=== PATIENT | female | born 1940 | race African-American/Black ===

== ENCOUNTER 2024-07-19 15:19 | Inpatient (IN) | payer MEDICARE, MEDICAID ==
[~2024-07-19] VITALS: Ht 157.5 cm; Wt 89.8 kg
[~2024-07-19 15:19] MED LIST: ALBUTEROL; ALPHAGAN; AMIT10TA6 PO; CARV6.2548 PO; CLON1TAB12 PO; ERGO1250 PO; FAMO40TA7 PO; rosuvastatin
[2024-07-19 17:33] LABS: BASOPHILS % 0.6 % (0.0-2.0); DIFFERENTIAL COMMENT 0; EOSINOPHILS % 2.1 % (0.0-5.0); HEMOGLOBIN. 12.6 g/dL (12.0-16.0); LYMPHOCYTES % 30.2 % (20.0-50.0); MEAN CORPUSCULAR HEMOGLOBIN 23.3 pg (28.0-32.0); MEAN CORPUSCULAR HGB CONC 30.7 g/dL (31.0-37.0); MEAN PLATELET VOLUME 9.6 fl (7.4-10.4); MONOCYTES % 14.9 % (2.0-8.0); NEUTROPHILS % 52.2 % (40.0-76.0); PLATELET 211 x1000/uL (130-400); RED CELL DISTRIBUTION WIDTH 18.4 % (11.6-14.6); WHITE BLOOD COUNT 6.1 x1000/uL (4.5-11.0)
[2024-07-19 17:38] LABS: CHLORIDE 109 mEq/L (98-107); POTASSIUM 3.7 mEq/L (3.5-5.1); SODIUM 142 mEq/L (136-145)
[2024-07-19 17:39] LABS: CALCIUM 9.5 mg/dL (8.7-10.4); CARBON DIOXIDE 28 mEq/L (21-32)
[2024-07-19 17:44] LABS: CREATININE 0.8 mg/dL (0.6-1.0); GLUCOSE 84 mg/dL (70-105); UREA NITROGEN BLOOD 10 mg/dL (9-23)
[2024-07-19 17:46] LABS: ALANINE AMINOTRANSFERASE 8 IU/L (10-49); ASPARTATE AMINOTRANSFERASE 14 IU/L (<34); BILIRUBIN TOTAL 0.3 mg/dL (0.1-1.0); PROTEIN TOTAL 7.4 g/dL (6.0-8.3)
[2024-07-19 17:47] LABS: PROTHROMBIN TIME 11.2 sec (9.6-11.0)
[2024-07-19 17:50] LABS: BILIRUBIN DIRECT < 0.1 mg/dL (<=3.0); TROPONIN I HIGH SENSITIVITY < 4 ng/L (3.0-34)
[2024-07-19] MEDS ORDERED: ONDANSETRON HCL 4MG/2ML INJ IV PRN (19:30)
[2024-07-19] MEDS ORDERED: NALOXONE HCL 0.4MG/ML VIAL IV PRN (19:30)
[2024-07-19] MEDS ORDERED: HYDROCODONE/ACETAMINOPHEN 5/325MG TABLET PO PRN (19:30)
[2024-07-19] MEDS ORDERED: CLONIDINE 0.1MG TABLET PO PRN (19:30)
[2024-07-19] MEDS: ENOXAPARIN 40MG/0.4ML SYR SUBCUT SCH (20:53)
[2024-07-19 20:57] LABS: CLARITY URINE CLOUDY (CLEAR); COLOR URINE YELLOW (YELLOW); GLUCOSE URINE 3+ (NEGATIVE); KETONES URINE NEGATIVE (NEGATIVE); LEUKOCYTE ESTERASE URINE 2+ (NEGATIVE); NITRITE URINE NEGATIVE (NEGATIVE); OCCULT BLOOD URINE TRACE (NEGATIVE); PH URINE 6.5 (4.5-8.0); PROTEIN URINE NEGATIVE (NEGATIVE); SPECIFIC GRAVITY URINE 1.028 (1.005-1.030); UROBILINOGEN URINE 0.2 E.U./dL (0.2-1.0)
[2024-07-19] MEDS: LEVETIRACETAM 500MG TABLET PO SCH (21:27)
[2024-07-19] MEDS: CARVEDILOL 6.25 MG TABLET PO SCH (21:27)
[2024-07-19 21:32] LABS: *AMPHETAMINES SCREEN URINE NEGATIVE (NEGATIVE); *BARBITURATES SCREEN URINE PRESUMPTIVE POSITIVE (NEGATIVE); *BENZODIAZEPINES SCREEN URINE NEGATIVE (NEGATIVE); *COCAINE SCREEN URINE NEGATIVE (NEGATIVE)
[2024-07-19 21:33] LABS: CANNABINOID URINE SCREEN NEGATIVE (NEGATIVE); ECSTASY MDMA SCREEN URINE NEGATIVE (NEGATIVE); METHADONE URINE SCREEN NEGATIVE (NEGATIVE); OPIATES URINE SCREEN NEGATIVE (NEGATIVE); PHENCYCLIDINE URINE SCREEN NEGATIVE (NEGATIVE)
[2024-07-19 22:06] LABS: BACTERIA URINE 4+; RBC URINE 0-2 /hpf (0-2); SQUAMOUS EPITHELIAL CELL URINE 1+ /lpf (RARE/1+)
[2024-07-19 22:07] LABS: WBC URINE 25-50 /hpf (0-2)
[2024-07-20 00:10] VITALS: BP 153/64; PULSE 80; RESP 18; TEMP 36.7516
[2024-07-20] MEDS ORDERED: DEXTROSE 50% WATER 50ML SYRINGE IV PRN (02:15)
[2024-07-20 04:00] VITALS: BP 154/91; PULSE 86; RESP 19; TEMP 36.16956; O2SAT 96
[2024-07-20] MEDS: BLOOD SUGAR DIAGNOSTIC STRIP TEST SCH (06:20)
[2024-07-20] MEDS: INSULIN LISPRO 100 UNITS/ML SUBCUT SCH (06:21)
[2024-07-20 07:11] LABS: CHLORIDE 106 mEq/L (98-107); POTASSIUM 3.6 mEq/L (3.5-5.1); SODIUM 142 mEq/L (136-145)
[2024-07-20 07:12] LABS: CALCIUM 9.6 mg/dL (8.7-10.4); CARBON DIOXIDE 26 mEq/L (21-32)
[2024-07-20 07:15] LABS: TROPONIN I HIGH SENSITIVITY 5 ng/L (3.0-34)
[2024-07-20 07:17] LABS: CREATININE 0.6 mg/dL (0.6-1.0); GLUCOSE 110 mg/dL (70-105); TRIGLYCERIDE 125 mg/dL (0-150); UREA NITROGEN BLOOD 12 mg/dL (9-23)
[2024-07-20 07:18] LABS: LDL CHOLESTEROL 62 mg/dL (5-100)
[2024-07-20 07:19] LABS: CHOLESTEROL 152 mg/dL (<200); HDL CHOLESTEROL 64 mg/dL (>65); THYROID STIMULATING HORMONE 2.85 uIU/mL (0.55-4.78)
[2024-07-20 07:20] LABS: BASOPHILS % 0.4 % (0.0-2.0); DIFFERENTIAL COMMENT 0; EOSINOPHILS % 2.2 % (0.0-5.0); HEMATOCRIT. 42.3 % (36.0-48.0); HEMOGLOBIN. 13.2 g/dL (12.0-16.0); LYMPHOCYTES % 33.6 % (20.0-50.0); MEAN CORPUSCULAR HEMOGLOBIN 23.7 pg (28.0-32.0); MEAN CORPUSCULAR HGB CONC 31.1 g/dL (31.0-37.0); MEAN CORPUSCULAR VOLUME 76.1 fL (81.0-99.0); MEAN PLATELET VOLUME 9.9 fl (7.4-10.4); NEUTROPHILS % 50.8 % (40.0-76.0); PLATELET 196 x1000/uL (130-400); RED BLOOD CELL COUNT 5.55 mill/uL (4.2-5.4); RED CELL DISTRIBUTION WIDTH 18.6 % (11.6-14.6); WHITE BLOOD COUNT 5.6 x1000/uL (4.5-11.0)
[2024-07-20 08:00] VITALS: BP 118/57; PULSE 65; RESP 19; TEMP 36.28068; O2SAT 93
[2024-07-20] MEDS: AMLODIPINE 5MG TABLET PO SCH (09:16)
[2024-07-20 12:00] VITALS: BP 118/52; PULSE 65; RESP 19; TEMP 36.28068; O2SAT 98
[2024-07-20] MEDS: ATORVASTATIN CALCIUM 10MG TABLET PO SCH (13:36)
[2024-07-20 16:00] VITALS: BP 128/74; PULSE 76; RESP 16; TEMP 36.114; O2SAT 94
[2024-07-20 20:00] VITALS: BP 137/68; PULSE 56; RESP 20; TEMP 36.16956; O2SAT 94
[2024-07-20] MEDS: ENOXAPARIN 30MG/0.3ML SYR SUBCUT SCH (21:56)
[2024-07-21] VITALS: BP 131/75; PULSE 80; RESP 20; TEMP 35.5584; O2SAT 100
[2024-07-21 04:00] VITALS: BP 152/83; PULSE 64; RESP 20; TEMP 36.16956; O2SAT 96
[2024-07-21 06:32] LABS: CHLORIDE 106 mEq/L (98-107); SODIUM 139 mEq/L (136-145)
[2024-07-21 06:33] LABS: CARBON DIOXIDE 27 mEq/L (21-32)
[2024-07-21 06:34] LABS: CALCIUM 9.7 mg/dL (8.7-10.4)
[2024-07-21 06:38] LABS: BASOPHILS % 0.5 % (0.0-2.0); CREATININE 0.7 mg/dL (0.6-1.0); DIFFERENTIAL COMMENT 0; EOSINOPHILS % 2.4 % (0.0-5.0); GLUCOSE 123 mg/dL (70-105); HEMATOCRIT. 45.9 % (36.0-48.0); HEMOGLOBIN. 14.1 g/dL (12.0-16.0); LYMPHOCYTES % 32.6 % (20.0-50.0); MEAN CORPUSCULAR HEMOGLOBIN 23.6 pg (28.0-32.0); MEAN CORPUSCULAR HGB CONC 30.7 g/dL (31.0-37.0); MEAN CORPUSCULAR VOLUME 76.8 fL (81.0-99.0); MEAN PLATELET VOLUME 9.6 fl (7.4-10.4); MONOCYTES % 13.6 % (2.0-8.0); NEUTROPHILS % 50.9 % (40.0-76.0); PLATELET 208 x1000/uL (130-400); RED BLOOD CELL COUNT 5.97 mill/uL (4.2-5.4); RED CELL DISTRIBUTION WIDTH 18.5 % (11.6-14.6); WHITE BLOOD COUNT 5.7 x1000/uL (4.5-11.0)
[2024-07-21 06:39] LABS: UREA NITROGEN BLOOD 8 mg/dL (9-23)
[2024-07-21 08:00] VITALS: BP 151/96; PULSE 86; RESP 18; TEMP 36.114; O2SAT 98
[2024-07-21] MEDS: LORAZEPAM 2MG/ML INJ IV PRN (09:29)
[2024-07-21 12:00] VITALS: BP 128/79; PULSE 84; RESP 18; TEMP 36.00288; O2SAT 96
[2024-07-21] MEDS: CEFTRIAXONE 1GM/50ML 50 ML IV SCH (13:07)
[2024-07-21 16:00] VITALS: BP 113/75; PULSE 87; RESP 18; TEMP 36.05844; O2SAT 95
[2024-07-21 18:16] LABS: POTASSIUM 3.6 mEq/L (3.5-5.1)
[2024-07-21 20:00] VITALS: BP 121/85; PULSE 98; RESP 20; TEMP 36.16956; O2SAT 96
[2024-07-22] VITALS: BP 105/66; PULSE 75; RESP 20; TEMP 35.89176; O2SAT 96
[2024-07-22 04:00] VITALS: BP 131/75; PULSE 98; RESP 20; TEMP 35.94732; O2SAT 96
[2024-07-22 08:00] VITALS: BP_SYST 119; BP_DIAS 82; BP_DIAS 87; PULSE 86; PULSE 87; RESP 18; TEMP 36.3918; O2SAT 96
[2024-07-22] MEDS: LEVETIRACETAM 250MG TABLET PO SCH (09:12)
[2024-07-22] MEDS: ACETAMINOPHEN 325MG TABLET PO PRN (10:02)
[2024-07-22 11:57] LABS: BASOPHILS % 0.5 % (0.0-2.0); DIFFERENTIAL COMMENT 0; EOSINOPHILS % 2.2 % (0.0-5.0); HEMATOCRIT. 44.3 % (36.0-48.0); HEMOGLOBIN. 13.6 g/dL (12.0-16.0); LYMPHOCYTES % 34.3 % (20.0-50.0); MEAN CORPUSCULAR HEMOGLOBIN 23.4 pg (28.0-32.0); MEAN CORPUSCULAR HGB CONC 30.7 g/dL (31.0-37.0); MEAN CORPUSCULAR VOLUME 76.3 fL (81.0-99.0); MEAN PLATELET VOLUME 9.8 fl (7.4-10.4); MONOCYTES % 10.9 % (2.0-8.0); NEUTROPHILS % 52.1 % (40.0-76.0); PLATELET 187 x1000/uL (130-400); RED CELL DISTRIBUTION WIDTH 18.4 % (11.6-14.6); WHITE BLOOD COUNT 5.3 x1000/uL (4.5-11.0)
[2024-07-22 12:00] VITALS: BP 134/99; PULSE 76; RESP 18; TEMP 36.3918; TEMP 36.39180; O2SAT 96
[2024-07-22 12:29] VITALS: BP 134/99; PULSE 76; TEMP 97.5; O2SAT 96
[2024-07-22 12:55] LABS: CARBON DIOXIDE 21 mEq/L (21-32); CHLORIDE 108 mEq/L (98-107); POTASSIUM 4.4 mEq/L (3.5-5.1); SODIUM 140 mEq/L (136-145)
[2024-07-22 12:56] LABS: CALCIUM 9.7 mg/dL (8.7-10.4)
[2024-07-22 13:01] LABS: CREATININE 0.7 mg/dL (0.6-1.0); GLUCOSE 169 mg/dL (70-105); UREA NITROGEN BLOOD 13 mg/dL (9-23)
== END 2024-07-22 14:20 | disposition home health service (06) | DRG 101 ==
LOC: ER 15:19 → EDBEDREQ 16:23 → 7EST 18:42 → EDBEDREQTM 18:47 → EDBEDREQ 18:47
PROVIDERS: ADMIT Internal Medicine Nephrology; ATTEND Internal Medicine Nephrology
PROC: 4A00X4Z Measurement of Central Nervous Electrical Activity, External Approach (ICD-10-PCS; principal; 2024-07-21)
DX: G40.909 Epilepsy, unspecified, not intractable, without status epilepticus (principal); F03.93 Unspecified dementia, unspecified severity, with mood disturbance; N39.0 Urinary tract infection, site not specified; E87.5 Hyperkalemia; I10 Essential (primary) hypertension; Z88.8 Allergy status to other drugs, medicaments and biological substances; E11.9 Type 2 diabetes mellitus without complications; E03.9 Hypothyroidism, unspecified; E78.5 Hyperlipidemia, unspecified; Z79.1 Long term (current) use of non-steroidal anti-inflammatories (NSAID); Z79.82 Long term (current) use of aspirin; Z79.899 Other long term (current) drug therapy; Z85.118 Personal history of other malignant neoplasm of bronchus and lung; Z86.73 Personal history of transient ischemic attack (TIA), and cerebral infarction without residual deficits; Z87.891 Personal history of nicotine dependence; Z91.041 Radiographic dye allergy status; Z92.3 Personal history of irradiation
CPT/HCPCS: 36415; 71045; 80048; 80061; 80076; 80305; 81003; 82962; 83735; 83880; 84132; 84443; 84484; 85025; 93005; 93306; 93970; 95816; 97166; 99285; J0696; J1650; J1815; J2060